=== PATIENT | female | born 1935 | race Caucasian/White ===

== ENCOUNTER → 2016-09-21 | Outpatient (CLI) | payer OTHER ==
--- NOTE | 2016-09-22 10:58 | MR ---
MRI Pelvis Without Contrast History: Right hip pain. Difficulty walking. Evaluate for cartilage damage and AVN. ICD-10 code M13.8 51. Technique: MRI was performed of the right hip and pelvis using a 1.5 [place] MRI system. Large field-of -view coronal and axial imaging was obtained of the pelvis. Small [id number] oblique coronal, obli que axial, and sagittal imaging was obtained of the right hip. Standard imaging sequences were perfor med. Findings: There is evidence of prior lumbar spine surgery with metal susceptibility artifact from the patient's hardware. No evidence for sacroiliitis. No evidence for avascular necrosis of the femoral head or stress fracture of the femoral neck. No evidence for joint effusion. Femoral head-neck junction of the right hip is within normal limits without evidence for an osseous b ump. The anterior superior labrum is diminutive and frayed. No evidence for displaced labral tear. Mi ld cartilage signal abnormality and thinning are seen superiorly in the femoral head and acetabulum. Capsule is unremarkable. There is mild edema and attenuation of the gluteus medius tendon insertion of the right greater troch anter at the anterior fibers. Mild edema is seen in the gluteus minimus tendon insertion. There is ab normal signal intensity in the common hamstring tendon origin bilaterally with mild attenuation on th e left. Impression: 1. Mild early degenerative change right hip with diminutive frayed anterior superior labrum. No evide nce for avascular necrosis. 2. Mild tendinopathy and partial tear gluteus medius tendon insertion of the right greater trochanter . 3. Mild tendinopathy common hamstring tendon origin bilaterally with mild partial tear on the left. 4. Evidence of prior lumbar spine surgery.
== END ==
LOC: FIMAGING 13:44
PROVIDERS: ATTEND Physician Assistant
DX: M13.851 Other specified arthritis, right hip (principal); M25.551 Pain in right hip; M77.9 Enthesopathy, unspecified

== ENCOUNTER → 2016-11-10 | Outpatient (CLI) | payer OTHER | LOC: BHFA 09:00 | PROVIDERS: ATTEND Internal Medicine Cardiovascular Disease | DX: I25.10 Atherosclerotic heart disease of native coronary artery without angina pectoris (principal) | CPT/HCPCS: 78452; 93017; A9500; J2785 ==

== ENCOUNTER → 2016-11-17 | Outpatient (CLI) | payer OTHER | LOC: FIMAGING 11:37 | PROVIDERS: ATTEND Internal Medicine Hematology & Oncology | DX: Z12.31 Encounter for screening mammogram for malignant neoplasm of breast (principal); Z85.3 Personal history of malignant neoplasm of breast; Z90.11 Acquired absence of right breast and nipple | CPT/HCPCS: G0202-52 ==

== ENCOUNTER → 2017-01-07 | Outpatient (CLI) | payer OTHER | LOC: BHFA 15:00 | PROVIDERS: ATTEND Internal Medicine Cardiovascular Disease | DX: I47.2 Ventricular tachycardia (principal) ==

== ENCOUNTER 2017-06-17 12:56 | Emergency (ER) | payer OTHER ==
--- NOTE | 2017-06-17 14:30 | CPEKG ---
Heart Rate: 56 RR Interval: 1071 P-R Interval: 176 QRSD Interval: 120 QT Interval: 440 QTC Interval: 425 P [place]: 45 QRS [place]: -51 T Wave [place]: -21 EKG Severity - ABNORMAL ECG - EKG Impression: SINUS RHYTHM EKG Impression: INCOMPLETE RBBB AND LAFB EKG Impression: LEFT VENTRICULAR HYPERTROPHY Preliminary Awaiting MD Review
[2017-06-17] MEDS ORDERED: ASPIRIN 81 MG CHEWABLE TAB PO ONE (14:57)
[2017-06-17 15:02] LABS: % IMMATURE GRANULYOCYTES 0.2 % (0.0-1.1); ABSOLUTE IMMATURE GRANULOCYTES 0.01 10^3/uL (0.00-0.10); ADD DIFF? NO; ADD MORPH? NO; ADD SCAN? NO; ATYPICAL LYMPHOCYTE FLAG 10 (0-99); FRAGMENT RBC FLAG 0 (0-99); HEMATOCRIT 37.6 % (38.0-47.0); HEMOGLOBIN 13.5 g/dL (12.6-16.3); LEFT SHIFT FLG 0 (0-99); LIPEMIA HEMOLYSIS FLAG 90 (0-99); MEAN CELL HEMOGLOBIN 33.5 pg (27.9-34.1); MEAN CELL HEMOGLOBIN CONCENTR. 35.9 g/dL (32.4-36.7); MEAN CELL VOLUME 93.3 fL (81.5-99.8); PLATELET CLUMPS FLAG 10 (0-99); PLATELET COUNT 211 10^3/uL (150-400); RED BLOOD CELL COUNT 4.03 10^6/uL (4.18-5.33); RED CELL DISTRIBUTION WIDTH 12.8 % (11.5-15.2)
--- NOTE | 2017-06-17 15:04 | EDPHY ---
H & P Time Seen by Provider: 06/17/17 14:59 HPI/ROS: HPI: This 81-year-old female who presents with Chief Complaint: Left neck, left arm pain Location: Left neck, left arm Quality: Burning pain Duration: Since waking this morning around 0600 Signs and Symptoms: No bleeding, + radiation from left lateral neck down to all 5 fingers, no numbness, no weakness, no tingling, no headache, no decreased range of motion, no dizziness, no chest pain, no shortness of breath, no nausea , vomiting Timing: Sudden Severity: Moderate Context: Patient reports that she had a restless evening and had difficulty getting comfortable. She will with left lateral neck pain with radiation to all 5 fingers. Pain is constant, sharp, burning in nature. She also reports lower back pain last night. She has a history of back surgery in the past but has not had this amount of pain since. She has a history of a heart murmur; but denies any significant cardiac history. No trauma/injury/chest pain/ shortness of breath/diaphoresis/nausea. Modifying Factors: Tylenol with no relief Comment: ROS: see HPI Constitutional: No fever, no chills, no weight loss Eyes: No blurred vision Respiratory: No shortness of breath, no cough Cardiovascular: No chest pain Gastrointestinal: No nausea, no vomiting no diarrhea Genitourinary: No dysuria Extremities: No myalgias Neurologic: No weakness, no numbness Skin: No rashes Hematologic: No bruising, no bleeding MEDICAL/SURGICAL/SOCIAL HISTORY: Medical history: hypothyroid, psoriasis, mitral murmur Surgical history: Mastectomy R; hysterectomy; cholecystectomy; back surg; shoulder surg Social history: CONSTITUTIONAL: Pleasant elderly well-appearing white female, at bedside, awake and alert, no obvious distress HEENT: Atraumatic and normocephalic, PERRL, EOMI. Tympanic membranes clear. Oropharynx clear, no exudate and moist pink mucosa. Airway patent. No lymphadenopathy. No meningismus. NECK: supple, no midline tenderness, left reproducible trapezius tenderness, flexion 45 degrees, extension 45 degrees, right and left lateral flexion 45 degrees. No meningismus. Cardiovascular: Normal S1/S2, regular rate, regular rhythm, without murmur rub or gallop. PULMONARY/CHEST: Symmetrical and nontender. Clear to auscultation bilaterally. Good air movement. No accessory muscle usage. ABDOMEN: Soft, nondistended, nontender, no rebound, no guarding, no peritoneal signs, no masses or organomegaly. No CVAT. EXTREMITIES: 2/2 pulses, left shoulder AC joint mild degenerative; no deformities, no clubbing, no cyanosis or edema. NEUROLOGICAL: no focal neuro deficits. GCS 15. SKIN: Warm and dry, no erythema. no rash. Good capillary refill. Source: Patient Exam Limitations: No limitations - Personal History Current Tetanus Diphtheria and Acellular Pertussis (TDAP): Yes - Medical/Surgical History Hx Asthma: No Hx Chronic Respiratory Disease: No Hx Diabetes: Yes Hx Cardiac Disease: Yes Hx Renal Disease: No Hx Cirrhosis: No Hx Alcoholism: No Hx HIV/AIDS: No Hx Splenectomy or Spleen Trauma: No Other PMH: Mastectomy R; hysterectomy; cholecystectomy; back surg; shoulder surg. hypothyroid, psoriasis, mitral murmur - Social History Smoking Status: Never smoked Constitutional: Initial Vital Signs Heart Rate 60 06/17/17 13:09 Respiratory Rate 18 06/17/17 13:09 Blood Pressure 159/80 H 06/17/17 13:09 O2 Sat (%) 95 06/17/17 13:09 O2 Delivery Mode Room Air Allergies/Adverse Reactions: No Known Allergies Allergy (Verified 06/17/17 13:07) Home Medications: Medication Instructions Recorded Folic Acid [Folic Acid 1 MG (*)] 1 mg PO DAILY@18 03/12/10 Insulin Aspart [novoLOG] 8 unit SQ DAILY@17 03/12/10 Insulin Glargine [Lantus 100 26 units SC DAILY 03/12/10 UNITS/ML (*)] Metoprolol Tartrate [Lopressor 25 12.5 mg PO BID 03/12/10 mg (*)] [place]-3 Ethyl Est-Lovaza [Lovaza 1 2 gm PO BID 03/12/10 gm (*)] Aspirin 325 mg (OTC) 325 mg PO DAILY 12/07/13 Cholecalciferol Vit D3 [Vitamin D3 2,000 units PO DAILY 12/07/13 (*)] Fluticasone Nasal [Flonase Nasal 2 sprays EACHNARE DAILY 12/07/13 [place]] Herbals/Supplements -Info Only 1 each PO AD 12/07/13 Levothyroxine [Synthroid 75 mcg 75 mcg PO DAILY06 12/07/13 (*)] Losartan Potassium [Cozaar 50 mg 50 mg PO DAILY@18 12/07/13 (*)] Vit B Comp/C/FA/Iron/Vit E 1 each PO DAILY 12/07/13 [Vitamin B Complex Tablet] metFORMIN HCL [Glucophage 850 mg 850 mg PO BIDMEAL #0 tab 12/08/13 (*)] CYCLOBENZAPRINE HCL [Flexeril] 5 mg PO TIDPRN PRN #12 tab 06/17/17 Verapamil [Calan 40MG (*)] 40 mg PO 06/17/17 Medical Decision Making - Diagnostics Imaging Results: Imaging Impressions Cervical Spine X-Ray 06/17/17 14:58 Impression: 1. Straightening of the mid cervical spine. This is nonspecific but can be seen with muscle spasm. 2. Degenerative disk disease mid to lower cervical spine along with facet hypertrophy. Chest X-Ray 06/17/17 14:58 Impression: 1. No active cardiopulmonary disease seen. Lumbar Spine X-Ray 06/17/17 14:58 Impression: 1. Postoperative changes of lumbar spinal fusion are noted with intact hardware. 2. Prominent degenerative changes above the operative level at the L2-L3 level. Shoulder X-Ray 06/17/17 14:58 Impression: Negative for fracture. Procedures: 12 lead EKG: Indication: Arm pain Rhythm: Normal sinus rhythm, rate 56 beats per minute [place]: Left Intervals: Normal QRS: Normal ST segments: Nonspecific changes T waves: The nonspecific changes INTERPRETATION: Normal EKG The 12 lead EKG was interpreted by myself. ED Course/Re-evaluation: Cervical x-ray, left shoulder x-ray, lumbar spine x-ray and oral medications ordered. Fingerstick blood sugar upon arrival was 90 Given aspirin and Flexeril with moderate relief of pain 1530: D-dimer elevated; CTA chest ordered to rule out pulmonary embolism 1600: Troponin and proBNP are unremarkable an EKG shows no acute ischemic changes Left shoulder x-ray reviewed in no acute fracture, dislocation, degenerative changes Chest x-ray reviewed shows no pneumothorax/effusion/opacity; thoracic spine degenerative changes noted Lumbar sacral spine shows prior history of fusion; mild degenerative changes L1- L2 Cervical x-ray shows straightening of the lordosis consistent with spasm; moderate degenerative disc disease L3-L7 1720: Called by radiologist Dr. Hull who advised no pulmonary embolism. Patient has politely declined any Rx medications stronger than a half a tab of Flexeril at this time. Differential Diagnosis: Differential diagnosis includes but is not limited to cervical degenerative disc disease with radiculopathy, trapezius muscle spasm, left shoulder bursitis , left shoulder impingement syndrome, acute coronary syndrome, pulmonary embolism. - Data Points Laboratory Results: Laboratory Results 06/17/17 14:32 06/17/17 14:32 06/17/17 06/17/17 06/17/17 14:34 14:32 14:32 WBC RBC Hgb Hct MCV MCH MCHC RDW Plt Count MPV Neut % (Auto) Lymph % (Auto) [place] % (Auto) Eos % (Auto) Baso % (Auto) Nucleat RBC Rel Count Absolute Neuts (auto) Absolute Lymphs (auto) Absolute Monos (auto) Absolute Eos (auto) Absolute Basos (auto) Absolute Nucleated RBC Immature Gran % Immature Gran # D-Dimer 0.79 ug/mLFEU H ug/mLFEU (0.00-0.50) Sodium 140 mEq/L mEq/L (134-144) Potassium 4.1 mEq/L mEq/L (3.5-5.2) Chloride 102 mEq/L mEq/L (97-110) Carbon Dioxide 27 mEq/l mEq/l (22-31) Anion Gap 11 mEq/L mEq/L (8-16) BUN 17 mg/dL mg/dL (7-23) Creatinine 0.6 mg/dL mg/dL (0.6-1.0) Estimated GFR > 60 Glucose 102 mg/dL H mg/dL (70-100) POC Glucose 90 mg/dL mg/dL (70-100) Calcium 10.3 mg/dL mg/dL (8.5-10.4) Troponin I < 0.012 ng/mL ng/mL (0.000-0.034) NT-Pro-B Natriuret Pep 260 pg/mL pg/mL (0-450) 06/17/17 14:32 WBC 6.60 10^3/uL 10^3/uL (3.80-9.50) RBC 4.03 10^6/uL L 10^6/uL (4.18-5.33) Hgb 13.5 g/dL g/dL (12.6-16.3) Hct 37.6 % L % (38.0-47.0) MCV 93.3 fL fL (81.5-99.8) MCH 33.5 pg pg (27.9-34.1) MCHC 35.9 g/dL g/dL (32.4-36.7) RDW 12.8 % % (11.5-15.2) Plt Count 211 10^3/uL 10^3/uL (150-400) MPV 9.0 fL fL (8.7-11.7) Neut % (Auto) 64.5 % % (39.3-74.2) Lymph % (Auto) 24.4 % % (15.0-45.0) [place] % (Auto) 8.2 % % (4.5-13.0) Eos % (Auto) 2.1 % % (0.6-7.6) Baso % (Auto) 0.6 % % (0.3-1.7) Nucleat RBC Rel Count 0.0 % % (0.0-0.2) Absolute Neuts (auto) 4.26 10^3/uL 10^3/uL (1.70-6.50) Absolute Lymphs (auto) 1.61 10^3/uL 10^3/uL (1.00-3.00) Absolute Monos (auto) 0.54 10^3/uL 10^3/uL (0.30-0.80) Absolute Eos (auto) 0.14 10^3/uL 10^3/uL (0.03-0.40) Absolute Basos (auto) 0.04 10^3/uL 10^3/uL (0.02-0.10) Absolute Nucleated RBC 0.00 10^3/uL 10^3/uL (0-0.01) Immature Gran % 0.2 % % (0.0-1.1) Immature Gran # 0.01 10^3/uL 10^3/uL (0.00-0.10) D-Dimer Sodium Potassium Chloride Carbon Dioxide Anion Gap BUN Creatinine Estimated GFR Glucose POC Glucose Calcium Troponin I NT-Pro-B Natriuret Pep Medications Given: Discontinued Medications Aspirin (Aspirin) 324 mg PO EDNOW ONE Stop: 06/17/17 14:58 Last Admin: 06/17/17 15:36 Dose: 324 mg Cyclobenzaprine HCl (Flexeril) 5 mg PO EDNOW ONE Stop: 06/17/17 15:06 Last Admin: 06/17/17 15:36 Dose: 5 mg Point of Care Test Results: 06/17/17 14:34 POC Glucose 90 Departure - Departure Disposition: Home, Routine, Self-Care Clinical Impression: Cervical radiculopathy due to degenerative joint disease of spine, Lumbar degenerative disc disease, History of lumbar spinal fusion, Cervical paraspinal muscle spasm Condition: Good Instructions: Cervical Strain (ED), Degenerative Disc Disease (ED) Additional Instructions: If symptoms continue to persist or worsen, please follow-up with Neurosurgery at which time they will recommend conservative versus further diagnostic imaging like an MRI to further evaluate the etiology of your symptoms. Referrals: Robyn Haines MD [Primary Care Provider] - As per Instructions Yuniel Theodore MD [Medical Doctor] - As per Instructions Prescriptions: CYCLOBENZAPRINE HCL [Flexeril] 5 mg PO TIDPRN PRN #12 tab PRN Reason: Spasms
[2017-06-17] MEDS ORDERED: CYCLOBENZAPRINE 10 MG TAB PO ONE (15:05)
[2017-06-17 15:19] LABS: ANION GAP 11 mEq/L (8-16); CALCIUM 10.3 mg/dL (8.5-10.4); CARBON DIOXIDE 27 mEq/l (22-31); CHLORIDE 102 mEq/L (97-110); CREATININE 0.6 mg/dL (0.6-1.0); GLOMERULAR FILTRATION RATE > 60; GLUCOSE 102 mg/dL (70-100); POTASSIUM 4.1 mEq/L (3.5-5.2); SODIUM 140 mEq/L (134-144)
[2017-06-17 15:31] LABS: TROPONIN I < 0.012 ng/mL (0.000-0.034)
[2017-06-17] MEDS ORDERED: IOPAMIDOL (ISOVUE 370) 100 ML BTL IV ONE (15:57)
[2017-06-17 17:40] VITALS: BP 164/97; PULSE 71; RESP 16; TEMP 97.7; O2SAT 92
== END 2017-06-17 17:50 | disposition home or self-care (01) ==
DX: M47.22 Other spondylosis with radiculopathy, cervical region (principal); M47.26 Other spondylosis with radiculopathy, lumbar region; M62.838 Other muscle spasm; E11.9 Type 2 diabetes mellitus without complications; Z79.4 Long term (current) use of insulin; Z79.82 Long term (current) use of aspirin; Z79.84 Long term (current) use of oral hypoglycemic drugs; Z98.1 Arthrodesis status
CPT/HCPCS: 71020; 71275; 72040; 72100; 73030; 93005; 99285; Q9967

== ENCOUNTER 2017-11-05 17:25 | Emergency (ER) | payer OTHER ==
--- NOTE | 2017-11-05 17:29 | EDPHY ---
H & P Time Seen by Provider: 11/05/17 17:33 HPI/ROS: CHIEF COMPLAINT: Blood in urine HISTORY OF PRESENT ILLNESS: Patient had diarrhea earlier today which was severe but not bloody. At the time of was associated with pain in her left flank which radiated to the left side of her vagina. The diarrhea has since subsided but then she noticed her urine was a little bit bloody, presents to the ER for evaluation. No fever or chills and no dysuria. No urinary frequency. No current back pain. Symptoms mild and not associated with any recent trauma or injury. No other sites of bleeding. REVIEW OF SYSTEMS: Eye: no change in vision ENT: no sore throat Cardiac: no chest pain or syncope Pulmonary: no cough or SOB Abdomen: HPI no vomiting Musculoskeletal: HPI Skin: no rash Neuro: no headache Constitutional: no fever : HPI A comprehensive 10 point review of systems is otherwise negative aside from elements mentioned in the history of present illness. PAST MEDICAL HISTORY: History and physical by Dr. Sanchez dated 12/07/2013 personally reviewed includes diabetes, hypertension, hyperlipidemia, atrial fibrillation, arthritis. Hysterectomy, cholecystectomy. Psoriasis. Social history: Nonsmoker General Appearance: Alert and conversant, cooperative. Eyes: No scleral icterus. ENT, Mouth: Normal mucous membranes. Respiratory: Normal respiratory effort, breath sounds equal, lungs are clear to auscultation. Cardiovascular: Regular rate and rhythm. Gastrointestinal: Abdomen is soft and non tender. Neurological: Alert, face symmetric, normal motor and sensory in extremities. Ambulatory, not ataxic. Independently to the bathroom. Skin: Patient has multiple areas of psoriasis including both elbows and both flanks. Musculoskeletal: No peripheral edema. Psychiatric: Not agitated. Emergency Department course/MDM: Urine dip positive for blood, urine microscopic and noncontrast CT abdomen and pelvis discussed and consented to evaluate for renal colic. 1825: Urinalysis reviewed will send culture but would not treat for UTI. Much more likely to be from renal colic. Referred back to primary care physician. Database and studies reviewed with the patient. Likely passed a kidney stone on the left. The hematuria more likely from this than UTI. Smoking Status: Never smoked Constitutional: Initial Vital Signs Temperature (C) 36.8 C 11/05/17 17:29 Heart Rate 82 11/05/17 17:29 Respiratory Rate 18 11/05/17 17:29 Blood Pressure 126/68 H 11/05/17 17:29 O2 Sat (%) 94 11/05/17 17:29 O2 Delivery Mode Room Air Allergies/Adverse Reactions: No Known Allergies Allergy (Verified 11/05/17 17:29) Home Medications: Medication Instructions Recorded Folic Acid [Folic Acid 1 MG (*)] 1 mg PO DAILY@18 03/12/10 Insulin Aspart [novoLOG] 8 unit SQ DAILY@17 03/12/10 Insulin Glargine [Lantus 100 26 units SC DAILY 03/12/10 UNITS/ML (*)] Metoprolol Tartrate [Lopressor 25 12.5 mg PO BID 03/12/10 mg (*)] [place]-3 Ethyl Est-Lovaza [Lovaza 1 2 gm PO BID 03/12/10 gm (*)] Aspirin 325 mg (OTC) 325 mg PO DAILY 12/07/13 Cholecalciferol Vit D3 [Vitamin D3 2,000 units PO DAILY 12/07/13 (*)] Fluticasone Nasal [Flonase Nasal 2 sprays EACHNARE DAILY 12/07/13 [place]] Herbals/Supplements -Info Only 1 each PO AD 12/07/13 Levothyroxine [Synthroid 75 mcg 75 mcg PO DAILY06 12/07/13 (*)] Losartan Potassium [Cozaar 50 mg 50 mg PO DAILY@18 12/07/13 (*)] Vit B Comp/C/FA/Iron/Vit E 1 each PO DAILY 12/07/13 [Vitamin B Complex Tablet] metFORMIN HCL [Glucophage 850 mg 850 mg PO BIDMEAL #0 tab 12/08/13 (*)] CYCLOBENZAPRINE HCL [Flexeril] 5 mg PO TIDPRN PRN #12 tab 06/17/17 Verapamil [Calan 40MG (*)] 40 mg PO 06/17/17 Medical Decision Making - Diagnostics Imaging Results: Imaging Impressions Abdomen/Pelvis CT 11/05/17 17:48 Impression: 1. Recently passed 3 mm calculus resides in the lumen of the urinary bladder. Mild residual left pelvocaliectasis and left perinephric edema. 2. Right nephrolithiasis. No ureteral calculi. Attention: This CT examination is specifically designed to evaluate patients who are clinically suspected of having acute obstructive uropathy. This examination does not use radiographic contrast, and as such, provides only a limited evaluation of the abdomen, pelvis and retroperitoneum. If there is further clinical suspicion for pathological conditions other than obstructive uropathy, a complete CT evaluation of the abdomen and pelvis utilizing intravenous, oral, and rectal contrast should be considered. Findings discussed with Emergency Department physician, Nacho Brower on 11/05/2017 , 18:20. The CT per Dr. Holt shows probable recently passed left ureteral calculus with some stranding and hydronephrosis in the left kidney and a 3 mm stone in the bladder. Imaging: Discussed imaging studies w/ body recall instructor Radiologist, I viewed and interpreted images myself Differential Diagnosis: Differential for hematuria considered including but not limited to kidney trauma , renal colic, UTI, coagulopathy. - Data Points Laboratory Results: 11/05/17 17:45 Urine RBC 50-182 /hpf H /hpf (0-3) Urine WBC 5-10 /hpf H /hpf (0-3) Ur Epithelial Cells TRACE /lpf /lpf (NONE-1+) Urine Bacteria TRACE /hpf H /hpf (NONE SEEN) Urine Mucus TRACE /lpf /lpf (NONE-1+) Departure - Departure Disposition: Home, Routine, Self-Care Clinical Impression: Renal colic on left side Condition: Good Instructions: Renal Colic (ED) Additional Instructions: Call [phone] in 48 hr for urine culture results. Referrals: Robyn Haines MD [Primary Care Provider] - As per Instructions
[2017-11-05 17:32] VITALS: BP 126/68; PULSE 82; RESP 18; TEMP 98.2; O2SAT 94
== END 2017-11-05 18:20 | disposition home or self-care (01) ==
DX: N23 Unspecified renal colic (principal); E11.9 Type 2 diabetes mellitus without complications; I10 Essential (primary) hypertension; Z79.4 Long term (current) use of insulin; Z79.82 Long term (current) use of aspirin

== ENCOUNTER → 2017-11-23 | Outpatient (CLI) | payer OTHER | LOC: FIMAGING 12:53 | PROVIDERS: ATTEND Internal Medicine Hematology & Oncology | DX: Z12.31 Encounter for screening mammogram for malignant neoplasm of breast (principal); Z90.11 Acquired absence of right breast and nipple ==

== ENCOUNTER → 2018-07-07 | Outpatient (CLI) | payer OTHER | LOC: BHFA 10:45 | PROVIDERS: ATTEND Internal Medicine Cardiovascular Disease | DX: I25.10 Atherosclerotic heart disease of native coronary artery without angina pectoris (principal); I10 Essential (primary) hypertension ==

== ENCOUNTER → 2018-07-19 | Outpatient (CLI) | payer OTHER | LOC: BHFA 09:00 | PROVIDERS: ATTEND Internal Medicine Interventional Cardiology | DX: I25.10 Atherosclerotic heart disease of native coronary artery without angina pectoris (principal); I42.2 Other hypertrophic cardiomyopathy; I35.0 Nonrheumatic aortic (valve) stenosis; I48.91 Unspecified atrial fibrillation ==

== ENCOUNTER 2018-09-13 19:54 | Observation (INO) | payer OTHER ==
[2018-09-13 20:46] LABS: PLATELET COUNT 204 10^3/uL (150-400)
--- NOTE | 2018-09-13 20:59 | EDPHY ---
H & P Stated Complaint: Afib started around 1800 Time Seen by Provider: 09/13/18 20:07 HPI/ROS: CHIEF COMPLAINT: Chest pain, palpitations HISTORY OF PRESENT ILLNESS: The patient presents to the ED with chest pain and palpitations that began at 7:00 a.m. this evening. The patient reportedly has a history of atrial fibrillation. She is under the care of Cardiology. She is not aware of a prior history of coronary artery disease. Tonight she reported pain that radiated to her neck and back. She currently is asymptomatic. The patient denies any asymmetric calf pain or swelling. The patient denies any history of exertional chest pain or shortness of breath. The patient denies any abdominal pain, vomiting or diarrhea. Patient denies any pleuritic chest pain. She denies asymmetric calf pain or swelling. The patient denies any history of exertional chest pain or shortness of breath. REVIEW OF SYSTEMS: A comprehensive 10 point review of systems is otherwise negative aside from elements mentioned in the history of present illness. Source: Patient Exam Limitations: No limitations - Personal History Current Tetanus/Diphtheria Vaccine: Yes Current Tetanus Diphtheria and Acellular Pertussis (TDAP): Yes - Medical/Surgical History Hx Asthma: No Hx Chronic Respiratory Disease: No Hx Diabetes: Yes Hx Cardiac Disease: Yes Hx Renal Disease: No Hx Cirrhosis: No Hx Alcoholism: No Hx HIV/AIDS: No Hx Splenectomy or Spleen Trauma: No Other PMH: Mastectomy R; hysterectomy; cholecystectomy; back surg; shoulder surg. hypothyroid, psoriasis, mitral murmur. ventriculat tachycardia, Afib - Social History Smoking Status: Never smoked - Physical Exam Exam: General Appearance: Alert, no distress Eyes: Pupils equal and round no pallor or injection ENT, Mouth: Mucous membranes moist Respiratory: There are no retractions, lungs are clear to auscultation Cardiovascular: 3/6 systolic ejection murmur Gastrointestinal: Abdomen is soft and nontender, no masses, bowel sounds normal Neurological: A&O, normal motor function, normal sensory exam, normal cranial nerves Skin: Warm and dry, no rashes Musculoskeletal: Neck is supple nontender Extremities: symmetrical, full range of motion Constitutional: Initial Vital Signs Temperature (C) 36.7 C 09/13/18 19:56 Heart Rate 99 09/13/18 19:56 Respiratory Rate 16 09/13/18 19:56 Blood Pressure 145/92 H 09/13/18 19:56 O2 Sat (%) 91 L 09/13/18 19:56 O2 Delivery Mode Room Air Allergies/Adverse Reactions: No Known Allergies Allergy (Verified 09/13/18 19:58) Home Medications: Medication Instructions Recorded Folic Acid [Folic Acid 1 MG (*)] 1 mg PO DAILY@18 03/12/10 Metoprolol Tartrate [Lopressor 25 12.5 mg PO BID 03/12/10 mg (*)] [place]-3 Ethyl Est-Lovaza [Lovaza 1 2 gm PO BID 03/12/10 gm (*)] Cholecalciferol Vit D3 [Vitamin D3 2,000 units PO DAILY 12/07/13 (*)] Fluticasone Nasal [Flonase Nasal 2 sprays EACHNARE DAILY 12/07/13 [place]] Herbals/Supplements -Info Only 1 each PO AD 12/07/13 Levothyroxine [Synthroid 75 mcg 75 mcg PO DAILY06 12/07/13 (*)] Losartan Potassium [Cozaar 50 mg 25 mg PO BID 12/07/13 (*)] Vit B Comp/C/Folic/Iron/Vit E 1 each PO DAILY 12/07/13 [Vitamin B Complex Tablet] metFORMIN HCL [Glucophage 850 mg 850 mg PO BIDMEAL #0 tab 12/08/13 (*)] Insulin Glargine,Hum.rec.anlog 30 units SC DAILY 09/13/18 [Basaglar Kwikpen U-100] Insulin Lispro [Humalog] 8 unit SQ DAILY@1700 09/13/18 Mirabegron [Myrbetriq] 50 mg PO DAILY 09/13/18 Verapamil ER [Calan SR/ER 120MG 120 mg PO DAILY@1700 09/13/18 (*)] Medical Decision Making - Diagnostics EKG Interpretation: EKG: Complete interpretation has been separately recorded in the [employer] archive. Summary impression: Sinus rhythm, bifascicular block, LVH, no ST segment elevation or depression noted ED Course/Re-evaluation: The patient presents the emergency department with chest pain, neck discomfort and palpitations that began earlier today. The patient did describe her symptoms with a Cooney sign. The patient has no history of coronary artery disease. The patient does have a bifascicular block noted on her EKG. The patient's initial troponin is normal. The patient does have risk factors for coronary artery disease including age, diabetes and hypertension. Patient does have a history of atrial fibrillation. Patient has a HEART score of 5. I do feel the patient should be admitted for a formal rule out consideration of a formal stress test tomorrow. The patient remained asymptomatic throughout her stay in the emergency department. Consultation was made with the hospitalist service. The patient will be admitted by Dr. Tip Lema. Differential Diagnosis: Differential diagnosis considered includes acute coronary syndrome, pericarditis , myocardial infarction, zoster, pulmonary embolism - Data Points Laboratory Results: Laboratory Results 09/13/18 20:30 09/13/18 20:30 09/13/18 09/13/18 09/13/18 20:57 20:30 20:30 WBC 6.14 10^3/uL 10^3/uL (3.80-9.50) RBC 3.80 10^6/uL L 10^6/uL (4.18-5.33) Hgb 12.5 g/dL L g/dL (12.6-16.3) Hct 35.7 % L % (38.0-47.0) MCV 93.9 fL fL (81.5-99.8) MCH 32.9 pg pg (27.9-34.1) MCHC 35.0 g/dL g/dL (32.4-36.7) RDW 12.8 % % (11.5-15.2) Plt Count 204 10^3/uL 10^3/uL (150-400) MPV 8.8 fL fL (8.7-11.7) Neut % (Auto) 63.3 % % (39.3-74.2) Lymph % (Auto) 25.1 % % (15.0-45.0) [place] % (Auto) 8.0 % % (4.5-13.0) Eos % (Auto) 2.6 % % (0.6-7.6) Baso % (Auto) 0.7 % % (0.3-1.7) Nucleat RBC Rel Count 0.0 % % (0.0-0.2) Absolute Neuts (auto) 3.89 10^3/uL 10^3/uL (1.70-6.50) Absolute Lymphs (auto) 1.54 10^3/uL 10^3/uL (1.00-3.00) Absolute Monos (auto) 0.49 10^3/uL 10^3/uL (0.30-0.80) Absolute Eos (auto) 0.16 10^3/uL 10^3/uL (0.03-0.40) Absolute Basos (auto) 0.04 10^3/uL 10^3/uL (0.02-0.10) Absolute Nucleated RBC 0.00 10^3/uL 10^3/uL (0-0.01) Immature Gran % 0.3 % % (0.0-1.1) Immature Gran # 0.02 10^3/uL 10^3/uL (0.00-0.10) Sodium 141 mEq/L mEq/L (135-145) Potassium 4.0 mEq/L mEq/L (3.5-5.2) Chloride 108 mEq/L mEq/L (97-110) Carbon Dioxide 26 mEq/l mEq/l (22-31) Anion Gap 7 mEq/L mEq/L (6-14) BUN 17 mg/dL mg/dL (7-23) Creatinine 0.6 mg/dL mg/dL (0.6-1.0) Estimated GFR > 60 Glucose 183 mg/dL H mg/dL (70-100) Calcium 9.6 mg/dL mg/dL (8.5-10.4) POC Troponin I 0.02 ng/mL ng/mL (0.00-0.08) Point of Care Test Results: Chemistry 09/13/18 20:57 POC Troponin I 0.02 ng/mL ng/mL (0.00-0.08) Departure - Departure Disposition: [facility] Inpatient Acute Clinical Impression: Chest pain Condition: Good
[2018-09-13] MEDS ORDERED: ACETAMINOPHEN 325 MG TAB PO PRN (22:39)
[2018-09-13] MEDS ORDERED: ONDANSETRON 4 MG/2 ML VIAL IVP PRN (22:39)
[2018-09-13] MEDS ORDERED: ONDANSETRON DISINTEGRATING 4 MG TAB PO PRN (22:39)
--- NOTE | 2018-09-13 22:41 | CPEKG ---
Test Reason : OPEN Blood Pressure : / mmHG Vent. Rate : 093 BPM Atrial Rate : 093 BPM P-R Int : 186 ms QRS Dur : 125 ms QT Int : 395 ms P-R-T Axes : 067 -61 019 degrees QTc Int : 492 ms Sinus rhythm RBBB and LAFB Left ventricular hypertrophy Lateral infarct, age indeterminate Confirmed by Manjeet Mills ([id number]) on 09/13/2018 10:40:42 PM Referred By: Confirmed By:Manjeet Mills
[2018-09-13] MEDS ORDERED: NITROGLYCERIN 0.4 MG BTL SL PRN (22:42)
[2018-09-13] MEDS ORDERED: D50W 25 GM/50 ML VIAL IVP PRN (23:31)
--- NOTE | 2018-09-14 00:52 | PDGENHP ---
History and Physical - Chief Complaint Chest pain - History of Present Illness 83 yo F w/ hx of AF, moderate , DM, and HTN presents after episode of chest pain. The patient was watching TV when she noticed central chest pressure and palpitations. The discomfort radiated to her neck and L shoulder/arm. The episode lasted about 45 minutes. She is chest pain free at the moment without other complaints. In the ED her work-up was relatively unremarkable with non- ischemic ECG and negative troponin. She is in sinus rhythm. She is being admitted for further evaluation of chest pain. Case discussed with Dr. Lema; records reviewed and summarized above. History Information - Allergies/Home Medication List Allergies/Adverse Reactions: No Known Allergies Allergy (Verified 09/13/18 19:58) Home Medications: Folic Acid [Folic Acid 1 MG (*)] 1 mg PO DAILY@18 03/12/10 [Last Taken 12/06/13 18:00] Metoprolol Tartrate [Lopressor 25 mg (*)] 12.5 mg PO BID 03/12/10 [Last Taken 10:00] [place]-3 Ethyl Est-Lovaza [Lovaza 1 gm (*)] 2 gm PO BID 03/12/10 [Last Taken 10/21 10:00] Cholecalciferol Vit D3 [Vitamin D3 (*)] 2,000 units PO DAILY 12/07/13 [Last Taken 12/06/13 18:00] Fluticasone Nasal [Flonase Nasal [place]] 2 sprays EACHNARE DAILY 12/07/13 [Last Taken 12/07/13 08:00] Herbals/Supplements -Info Only 1 each PO AD 12/07/13 [Last Taken 12/06/13 18:00] Levothyroxine [Synthroid 75 mcg (*)] 75 mcg PO DAILY06 12/07/13 [Last Taken 10/21 07:00] Losartan Potassium [Cozaar 50 mg (*)] 25 mg PO BID 12/07/13 [Last Taken 18:00] Vit B Comp/C/Folic/Iron/Vit E [Vitamin B Complex Tablet] 1 each PO DAILY [Last Taken 12/07/13 10:00] Insulin Glargine,Hum.rec.anlog [Basaglar Kwikpen U-100] 30 units SC DAILY [Last Taken 09/13/18] Insulin Lispro [Humalog] 8 unit SQ DAILY@1700 09/13/18 [Last Taken Unknown] Mirabegron [Myrbetriq] 50 mg PO DAILY 09/13/18 [Last Taken Unknown] Verapamil ER [Calan SR/ER 120MG (*)] 120 mg PO DAILY@1700 09/13/18 [Last Taken Unknown] I have personally reviewed and updated: family history, medical history - Past Medical History atrial fibrillation, diabetes type 2, hypertension Additional medical history: Moderate aortic stenosis - Surgical History Reports: cholecystectomy, hysterectomy, hernia repair - Family History Positive for: cancer, diabetes type II, CAD - Social History Smoking Status: Never smoked Review of Systems Review of Systems: ROS: 10pt was reviewed & negative except for what was stated in HPI & below Physical Exam Physical Exam: Temp Pulse Resp BP Pulse Ox 36.8 C 79 16 142/77 H 98 09/13/18 23:02 09/13/18 23:02 09/13/18 23:02 09/13/18 23:02 09/13/18 23:02 O2 (L/minute) 2 Constitutional: no apparent distress, not in pain Eyes: EOMI Ears, Nose, Mouth, Throat: moist mucous membranes, no oral mucosal ulcers Cardiovascular: regular rate and rhythym, systolic murmur Respiratory: no respiratory distress, clear to auscultation Gastrointestinal: normoactive bowel sounds, soft, non-tender abdomen Skin: warm, normal color Musculoskeletal: full muscle strength, no muscle tenderness Neurologic: AAOx3, CN II-XII Intact Psychiatric: interacting appropriately, not anxious Lab Data & Imaging Review 09/13/18 20:30 09/13/18 20:30 WBC 6.14 10^3/uL (3.80-9.50) 09/13/18 20:30 RBC 3.80 10^6/uL (4.18-5.33) L 09/13/18 20:30 Hgb 12.5 g/dL (12.6-16.3) L 09/13/18 20:30 Hct 35.7 % (38.0-47.0) L 09/13/18 20:30 MCV 93.9 fL (81.5-99.8) 09/13/18 20:30 MCH 32.9 pg (27.9-34.1) 09/13/18 20: MCHC 35.0 g/dL (32.4-36.7) 09/13/18 20: RDW 12.8 % (11.5-15.2) 09/13/18 20:30 Plt Count 204 10^3/uL (150-400) 09/13/18 20:30 MPV 8.8 fL (8.7-11.7) 09/13/18 20:30 Neut % (Auto) 63.3 % (39.3-74.2) 09/13/18 20:30 Lymph % (Auto) 25.1 % (15.0-45.0) 09/13/18 20: [place] % (Auto) 8.0 % (4.5-13.0) 09/13/18 20:30 Eos % (Auto) 2.6 % (0.6-7.6) 09/13/18: Baso % (Auto) 0.7 % (0.3-1.7) 09/13/18 20:30 Nucleat RBC Rel Count 0.0 % (0.0-0.2) 09/13/18 20:30 Absolute Neuts (auto) 3.89 10^3/uL (1.70-6.50) 09/13/18 20:30 Absolute Lymphs (auto) 1.54 10^3/uL (1.00-3.00) 09/13/18 20: Absolute Monos (auto) 0.49 10^3/uL (0.30-0.80) 09/13/18 20:30 Absolute Eos (auto) 0.16 10^3/uL (0.03-0.40) 09/13/18 20: Absolute Basos (auto) 0.04 10^3/uL (0.02-0.10) 09/13/18 20: Absolute Nucleated RBC 0.00 10^3/uL (0-0.01) 09/13/18 20: Immature Gran % 0.3 % (0.0-1.1) 09/13/18 20: Immature Gran # 0.02 10^3/uL (0.00-0.10) 09/13/18 20:30 Sodium 141 mEq/L (135-145) 09/13/18 20:30 Potassium 4.0 mEq/L (3.5-5.2) 09/13/18 20:30 Chloride 108 mEq/L (97-110) 09/13/18 20:30 Carbon Dioxide 26 mEq/l (22-31) 09/13/18 20:30 Anion Gap 7 mEq/L (6-14) 09/13/18 20:30 BUN 17 mg/dL (7-23) 09/13/18 20:30 Creatinine 0.6 mg/dL (0.6-1.0) 09/13/18 20:30 Estimated GFR > 60 09/13/18 20:30 Glucose 183 mg/dL (70-100) H 09/13/18 20:30 Calcium 9.6 mg/dL (8.5-10.4) 09/13/18 20:30 POC Troponin I 0.02 ng/mL (0.00-0.08) 09/13/18 20:57 Visualized and Interpreted EKG results: Yes EKG Interpretation: Positive for: normal sinsus rhythm, other (Bifascicular block) Assessment & Plan Assessment: 83 yo F w/ hx moderate , HTN, AF, and DM presents with chest pain. Plan: 1. Chest pain - 45 minute episode of central chest pressure associated with palpitations and radiation the L neck and arm. Initial ECG (personally reviewed/ interpreted) demonstrates stable bifascicular block but no signs of acute ischemia; troponin negative. HEART score of at least 5 denoting need for further work-up. - Admit to PCU for observation - Trend cardiac enzymes, monitor on telemetry - ECG, NTG PRN for chest pain - Noting abnormal baseline ECG, moderate , and recent BB use will order Lexiscan perfusion study w/ NM 2. Moderate - Mean gradient 31 mm Hg on 06/24 TTE. She denies prior symptoms of dyspnea, syncope, or heart failure. - Ischemic evaluation as above 3. AF - In NSR on admission, has bifascicular block at baseline; not on AC. She is followed by Dr. Carpenter. - Monitor on telemetry - Continue BB, CCB 4. HTN - Continue home medications 5. DM - On metformin, insulin glargine 30 u qAM, and lispro 8 u @ 1700. - Will give half dose basal insulin tomorrow noting NPO - Continue other medications - Monitor BG ACHS; D50 IV PRN for hypoglycemia Diet - NPO @ GA Code - Full Ppx - LMWH Dispo - Admit under observation status
[2018-09-14 05:09] LABS: PLATELET COUNT 191 10^3/uL (150-400)
[2018-09-14] MEDS ORDERED: LEVOTHYROXINE 75 MCG TAB PO SCH (06:00)
[2018-09-14] MEDS ORDERED: metFORMIN HCL 850 MG TAB PO SCH (08:00)
[2018-09-14] MEDS ORDERED: CHOLECALCIFEROL VIT D3 2,000 UNITS TAB/CAP PO SCH (09:00)
[2018-09-14] MEDS ORDERED: OMEGA-3 ETHYL EST-LOVAZA 1 GM CAP PO SCH (09:00)
[2018-09-14] MEDS ORDERED: Mirabegron [Myrbetriq] 50 MG PO SCH (09:00)
[2018-09-14] MEDS ORDERED: INSULIN GLARGINE HUM REC ANLOG 15 UNIT SC SCH (09:00)
[2018-09-14] MEDS ORDERED: VITAMIN B COMPLEX 1 EA CAP/TAB PO SCH (09:00)
[2018-09-14] MEDS ORDERED: FLUTICASONE NASAL 120 SPRAYS/16 GM MDI EACHNARE SCH (09:00)
[2018-09-14] MEDS ORDERED: METOPROLOL TARTRATE 25 MG TAB PO SCH (09:00)
[2018-09-14] MEDS ORDERED: ENOXAPARIN 40 MG/0.4 ML SYR SC SCH (09:00)
[2018-09-14] MEDS ORDERED: LOSARTAN POTASSIUM 25 MG TAB PO SCH (09:00)
[2018-09-14] MEDS ORDERED: REGADENOSON 0.4 MG/5 ML SYR IVP ONE (09:26)
--- NOTE | 2018-09-14 09:56 | ASMTCMCOM ---
CM Note CM Note Notes: Pt is an 83 yo F presents with chestpain. Pt lives with her Solo. No therapies ordered. Likely will discharge independent. CM available if needs arise. Plan: Independent Date Signed: 09/14/2018 09:55 AM Electronically Signed By:RASTA Butt
[2018-09-14 12:25] VITALS: BP 125/61
--- NOTE | 2018-09-14 13:36 | HOSPPROG ---
Hospitalist Progress Note Assessment/Plan: 83 yo F w clover w cp seen by her distribution field technician freida licea home today see dc summary she dos take an asa at home Subjective: neg trop. wishes to go home Objective: Vital Signs Temp Pulse Resp BP Pulse Ox 36.5 C 73 16 125/61 H 92 09/14/18 12:00 09/14/18 12:00 09/14/18 12:00 09/14/18 12:00 09/14/18 12:00 Laboratory Results 09/14/18 04:08 09/14/18 04:08 09/13/18 09/14/18 09/15/18 05:59 05:59 05:59 Intake Total 100 520 Output Total 100 900 Balance 0 -380 - Physical Exam Constitutional: no apparent distress Eyes: PERRL, anicteric sclera Ears, Nose, Mouth, Throat: moist mucous membranes, hearing normal Cardiovascular: regular rate and rhythym, No systolic murmur Respiratory: no respiratory distress, no rales or rhonchi Gastrointestinal: normoactive bowel sounds, soft, non-tender abdomen Genitourinary: no bladder fullness, No ricardo in urethra Skin: warm Musculoskeletal: full muscle strength ICD10 Worksheet Patient Problems: Problems Problem Status Onset Chest pain Acute
--- NOTE | 2018-09-14 13:47 | PDCARCONS ---
Cardiology Consult Reason for Consult: Chest pain Chief Complaint: Chest pain Requesting Physician: Nayan History of Present Illness: 83-year-old female well known to me history of aortic stenosis with recent increasing gradient peak of 61 mm of mercury in June who was watching the news yesterday. She developed the acute onset of palpitations. They are painful. There is some discomfort up into her neck and into her arm. She became frightened and anxious. After 45 min she came to the emergency department on arrival her pain resolved. She has been observed overnight. Without further discomfort. Troponins are negative. Her mass to comment on further evaluation. She has been complaining of some shortness of breath with exertion. She occasionally has chest pressure. She has known history of atrial fibrillation associated with palpitations. She has a known history of wide complex tachycardia that has been nonsustained. There was a discussion regarding placement of an ICD which she declined. She had a normal coronary angiogram in 2013. Recent echocardiogram showed progression of aortic stenosis in the moderate to severe range in June. At that time there was a discussion regarding potential surgical intervention. She is not particularly interested in considering this option. She denies PND orthopnea. She has had no syncope. Patient also complained of an upset stomach yesterday. She ate out. She denies diarrhea or constipation. She has otherwise been in relatively good health. Medications Generic Name Dose Route Start Last Admin Trade Name Quentni PRN Reason Stop Dose Admin Enoxaparin Sodium 40 mg 09/14/18 09:00 09/14/18 08:18 Lovenox SC 03/13/19 08:59 40 mg DAILY [facility] Acetaminophen 650 mg 09/13/18 22:39 Tylenol PO 03/12/19 22:38 Q4HRS PRN Pain, Mild/Fever, Can Take PO Cholecalciferol 2,000 units 09/14/18 09:00 09/14/18 08:18 Vitamin D PO 03/13/19 08:59 2,000 units DAILY [facility] Dextrose 25 gm 09/13/18 23:31 Dextrose 50% Vial IVP 03/12/19 23:30 PRN PRN Hypoglycemia Fluticasone Propionate 2 sprays 09/14/18 09:00 09/14/18 08:19 Flonase Nasal [place] EACHNARE 03/13/19 08:59 Not Given DAILY [facility] Folic Acid 1 mg 09/14/18 18:00 Folic Acid PO 03/13/19 17:59 DAILY@18 [facility] Insulin Human Lispro 8 unit 09/14/18 17:00 Humalog Lispro SC 03/13/19 16:59 DAILY@1700 [facility] Levothyroxine Sodium 75 mcg 09/14/18 06:00 09/14/18 08:18 Synthroid PO 03/13/19 05:59 75 mcg DAILY06 [facility] Losartan Potassium 25 mg 09/14/18 09:00 09/14/18 08:18 Cozaar PO 03/13/19 08:59 25 mg BID [facility] Metformin HCl 850 mg 09/14/18 08:00 09/14/18 10:11 Glucophage PO 03/13/19 07:59 850 mg BIDMEAL [facility] Metoprolol Tartrate 12.5 mg 09/14/18 09:00 09/14/18 10:11 Lopressor PO 03/13/19 08:59 12.5 mg BID [facility] Verapamil HCl 120 mg 09/14/18 17:00 Calan Sr PO 03/13/19 16:59 DAILY@1700 [facility] History Information - Allergies/Home Medication List Allergies/Adverse Reactions: No Known Allergies Allergy (Verified 09/13/18 19:58) Home Medications: Folic Acid [Folic Acid 1 MG (*)] 1 mg PO DAILY@18 03/12/10 [Last Taken 12/06/13 18:00] Metoprolol Tartrate [Lopressor 25 mg (*)] 12.5 mg PO BID 03/12/10 [Last Taken 10:00] [place]-3 Ethyl Est-Lovaza [Lovaza 1 gm (*)] 2 gm PO BID 03/12/10 [Last Taken 10/21 10:00] Cholecalciferol Vit D3 [Vitamin D3 (*)] 2,000 units PO DAILY 12/07/13 [Last Taken 12/06/13 18:00] Fluticasone Nasal [Flonase Nasal [place]] 2 sprays EACHNARE DAILY 12/07/13 [Last Taken 12/07/13 08:00] Herbals/Supplements -Info Only 1 each PO AD 12/07/13 [Last Taken 12/06/13 18:00] Levothyroxine [Synthroid 75 mcg (*)] 75 mcg PO DAILY06 12/07/13 [Last Taken 10/21 07:00] Losartan Potassium [Cozaar 50 mg (*)] 25 mg PO BID 12/07/13 [Last Taken 18:00] Vit B Comp/C/Folic/Iron/Vit E [Vitamin B Complex Tablet] 1 each PO DAILY [Last Taken 12/07/13 10:00] Insulin Glargine,Hum.rec.anlog [Basaglar Kwikpen U-100] 30 units SC DAILY [Last Taken 09/13/18] Insulin Lispro [Humalog] 8 unit SQ DAILY@1700 09/13/18 [Last Taken Unknown] Mirabegron [Myrbetriq] 50 mg PO DAILY 09/13/18 [Last Taken Unknown] Verapamil ER [Calan SR/ER 120MG (*)] 120 mg PO DAILY@1700 09/13/18 [Last Taken Unknown] Past Medical History: - Social History Smoking Status: Never smoked Physical Exam Physical Exam: Temp Pulse Resp BP Pulse Ox 36.5 C 73 16 125/61 H 92 09/14/18 12:00 09/14/18 12:00 09/14/18 12:00 09/14/18 12:00 09/14/18 12:00 O2 (L/minute) 2 Constitutional: no apparent distress Eyes: PERRL Ears, Nose, Mouth, Throat: moist mucous membranes Cardiovascular: regular rate and rhythym, systolic murmur, pulses symmetric bilaterally, No JVD Peripheral Pulses: 1+: carotid (R), carotid (L), femoral (R), femoral (L) Respiratory: no respiratory distress, No expiratory wheeze Gastrointestinal: normoactive bowel sounds, soft, non-tender abdomen Genitourinary: no bladder fullness Skin: warm, No rash Musculoskeletal: full muscle strength Neurologic: AAOx3, No weakness, No facial droop Psychiatric: interacting appropriately Lymph, Heme, Immunologic: no cervical LAD, no supraclavicular LAD Lab and Imaging 09/14/18 04:08 09/14/18 04:08 WBC 6.11 10^3/uL (3.80-9.50) 09/14/18 04:08 RBC 3.46 10^6/uL (4.18-5.33) L 09/14/18 04:08 Hgb 11.3 g/dL (12.6-16.3) L 09/14/18 04:08 Hct 33.2 % (38.0-47.0) L 09/14/18 04:08 MCV 96.0 fL (81.5-99.8) 09/14/18 04:08 MCH 32.7 pg (27.9-34.1) 09/14/18 04:08 MCHC 34.0 g/dL (32.4-36.7) 09/14/18 04:08 RDW 13.0 % (11.5-15.2) 09/14/18 04:08 Plt Count 191 10^3/uL (150-400) 09/14/18 04:08 MPV 9.2 fL (8.7-11.7) 09/14/18 04:08 Neut % (Auto) 55.4 % (39.3-74.2) 09/14/18 04:08 Lymph % (Auto) 30.9 % (15.0-45.0) 09/14/18 04:08 [place] % (Auto) 9.5 % (4.5-13.0) 09/14/18 04:08 Eos % (Auto) 3.3 % (0.6-7.6) 09/14/18 04:08 Baso % (Auto) 0.7 % (0.3-1.7) 09/14/18 04:08 Nucleat RBC Rel Count 0.0 % (0.0-0.2) 09/14/18 04:08 Absolute Neuts (auto) 3.39 10^3/uL (1.70-6.50) 09/14/18 04:08 Absolute Lymphs (auto) 1.89 10^3/uL (1.00-3.00) 09/14/18 04:08 Absolute Monos (auto) 0.58 10^3/uL (0.30-0.80) 09/14/18 04:08 Absolute Eos (auto) 0.20 10^3/uL (0.03-0.40) 09/14/18 04:08 Absolute Basos (auto) 0.04 10^3/uL (0.02-0.10) 09/14/18 04:08 Absolute Nucleated RBC 0.00 10^3/uL (0-0.01) 09/14/18 04:08 Immature Gran % 0.2 % (0.0-1.1) 09/14/18 04:08 Immature Gran # 0.01 10^3/uL (0.00-0.10) 09/14/18 04:08 Sodium 141 mEq/L (135-145) 09/14/18 04:08 Potassium 4.3 mEq/L (3.5-5.2) 09/14/18 04:08 Chloride 110 mEq/L (97-110) 09/14/18 04:08 Carbon Dioxide 24 mEq/l (22-31) 09/14/18 04:08 Anion Gap 7 mEq/L (6-14) 09/14/18 04:08 BUN 16 mg/dL (7-23) 09/14/18 04:08 Creatinine 0.5 mg/dL (0.6-1.0) L 09/14/18 04:08 Estimated GFR > 60 09/14/18 04:08 Glucose 149 mg/dL (70-100) H 09/14/18 04:08 POC Glucose 174 mg/dL (70-100) H 09/14/18 13:25 Calcium 9.2 mg/dL (8.5-10.4) 09/14/18 04:08 Phosphorus 4.5 mg/dL (2.5-4.5) 09/14/18 04:08 Magnesium 1.4 mg/dL (1.6-2.3) L 09/14/18 04:08 POC Troponin I 0.02 ng/mL (0.00-0.08) 09/13/18 20:57 Troponin I 0.029 ng/mL (0.000-0.034) 09/14/18 04:08 EKG additional interpertation: Sinus rhythm with right bundle branch block. No acute ST-T changes with ongoing discomfort. A/P Assessment: Problem list: 1. Palpitations 2. Exertional shortness of breath 3. Moderate to severe aortic stenosis 4. Anemia. 5. History of wide complex tachycardia/atrial fibrillation 6. Hypertension 7. Hyperlipidemia 8. Diabetes Recommendations are for discharge from the hospital with clinical follow-up. She is currently on good medical therapy including daily aspirin. It is unlikely that she has had significant progression of underlying coronary disease with a normal angiogram in 2014 an excellent management of risk. I have discussed with her in the past consideration for aortic valve surgery which she has not been interested in. I have discussed with her placement of an ICD for wide complex tachycardia which she also has declined. She is on low- dose beta-blockade. She is on low-dose verapamil for rate control. Blood pressures been well controlled. We will see how she does over the next week to 10 days with consideration for repeat invasive evaluation and considerations for transcutaneous aortic valve replacement if she would like. At this point differential diagnosis would include GI etiology as it related to meals. With negative troponins, stable EKG, past clinical history I feel comfortable with her being discharged in follow-up as an outpatient. She does seem to have a low -grade anemia which is likely contributing. Would recommend completion of evaluation for blood loss. Past Medical History PMH: - Personal History Current Tetanus/Diphtheria Vaccine: Yes Current Tetanus Diphtheria and Acellular Pertussis (TDAP): Yes - Medical/Surgical History Hx Asthma: No Hx Chronic Respiratory Disease: No Hx Cardiac Disease: Yes Hx Diabetes: Yes Hx Renal Disease: No Hx Alcoholism: No Hx Cirrhosis: No Hx HIV/AIDS: No Hx Splenectomy or Spleen Trauma: No Other PMH: Mastectomy R; hysterectomy; cholecystectomy; back surg; shoulder surg. hypothyroid, psoriasis, mitral murmur. ventriculat tachycardia, Afib - Family History Significant Family History: No pertinent family hx - Social History Smoking Status: Never smoked Alcohol Use: None Drug Use: None Additional Social History: Review of Systems Review of Systems: - Review of Systems Constitutional: denies: chills, fever Respiratory: shortness of breath. denies: wheezing Cardiac: chest pain, palpitations. denies: edema, irregular heart rate, lightheadedness, syncope Gastrointestinal/Abdominal: no symptoms reported Genitourinary: no symptoms Musculoskelatal: no symptoms Skin: no symptoms Neurological: no symptoms Hematologic/Lymphatic: no symptoms reported
--- NOTE | 2018-09-14 14:00 | GDS ---
DISCHARGE DIAGNOSES: 1. Chest pain. 2. Aortic stenosis, atrial fibrillation, diabetes, hypertension, presents with episode of chest pain . She had a nonischemic EKG. She had negative troponin. She was seen by her military administrative technician, who felt she was safe for discharge. Notably, she had a catheterization with no coronary disease 4-1/2 years ago. Her EKG was similar to that of about a year and a half ago. She did have some resting nuclear images today showing a small inferolateral apical defect, possible infarct or ischemia. This is indeterminate. Cardiology is aware of this and felt was not a contrain dication to discharge. The patient is anxious for discharge. She does take an aspirin at home. /[id number]/MODL
--- NOTE | 2018-09-14 14:18 | ASDISCHSUM ---
Discharge Information Plan Status:Home with No Needs Medically Cleared to Leave:09/13/2018 Discharge Date:09/13/2018 CM D/C Disposition:Home, Routine, Self-Care ADT D/C Disposition: Projected Discharge Date:09/14/2018 12:00 AM Transportation at D/C:Family Discharge Delay Reason: Follow-Up Date:09/14/2018 12:00 AM Discharge Slot: Final Diagnosis: Placement Information Patient Contact Information Contact Name:SAIRA Relationship:Agapito Address:[address] [facility] Work Phone: City:[facility] Phone: State/Zip Code:[place] [address] Email: Financial Information Financial Class:Medicare Primary Plan Desc:MEDICARE OUTPATIENT Primary Plan Number:[id number] Secondary Plan Desc:KYLIE CHAMORRO O Secondary Plan Number:[id number] Assessment Information BC CM Progress Note CM Note CM Note Notes: Pt is an 83 yo F presents with chestpain. Pt lives with her Solo. No therapies ordered. Likely will discharge independent. CM available if needs arise. Plan: Independent Date Signed: 09/14/2018 09:55 AM Electronically Signed By:RASTA Butt Case Management Discharge Plan Note Case Management Discharge Discharge Order Complete? Answers: Yes Patient to Obtain Answers: via Family Medications Transportation Arranged Answers: Family/Friends Family Notified Answers: Yes Discharge Comments Notes: No CM needs identified. Pt being discharged independently with her husbands support and to transport. Date Signed: 09/14/2018 02:17 PM Electronically Signed By:RASTA Butt Intervention Information
[2018-09-14] MEDS ORDERED: VERAPAMIL ER 120 MG TAB PO SCH (17:00)
[2018-09-14] MEDS ORDERED: INSULIN LISPRO 100 UNIT/ML SC SCH (17:00)
[2018-09-14] MEDS ORDERED: FOLIC ACID 1 MG TAB PO SCH (18:00)
== END 2018-09-14 14:29 | disposition home or self-care (01) ==
LOC: F2W 21:41
PROVIDERS: ADMIT Internal Medicine; ATTEND Internal Medicine
DX: R07.9 Chest pain, unspecified (principal); I35.0 Nonrheumatic aortic (valve) stenosis; I48.91 Unspecified atrial fibrillation; I47.2 Ventricular tachycardia; Z79.82 Long term (current) use of aspirin; D64.9 Anemia, unspecified; E11.9 Type 2 diabetes mellitus without complications; Z79.4 Long term (current) use of insulin; I10 Essential (primary) hypertension; E78.5 Hyperlipidemia, unspecified; Z85.3 Personal history of malignant neoplasm of breast; Z90.11 Acquired absence of right breast and nipple
CPT/HCPCS: 78451; 93005; 96372; 99285; A9500; G0378; J1650; 84484-ER; J2785

== ENCOUNTER → 2018-12-06 | Outpatient (CLI) | payer OTHER | LOC: FIMAGING 11:43 | PROVIDERS: ATTEND Internal Medicine | DX: Z12.31 Encounter for screening mammogram for malignant neoplasm of breast (principal); Z85.3 Personal history of malignant neoplasm of breast; Z90.11 Acquired absence of right breast and nipple ==

== ENCOUNTER → 2018-12-22 | Outpatient (CLI) | payer OTHER ==
[~2018-12-22] MED LIST: IOPAMIDOL (ISOVUE-300) 100 ML BTL ONE
== END ==
LOC: FIMAGING 07:58
PROVIDERS: ATTEND Internal Medicine
DX: R10.9 Unspecified abdominal pain (principal); S22.41XD Multiple fractures of ribs, right side, subsequent encounter for fracture with routine healing; Z85.3 Personal history of malignant neoplasm of breast
CPT/HCPCS: 74177; Q9967; 82565-PO

== ENCOUNTER 2019-02-18 07:44 | Day surgery (SDC) | payer OTHER | END 2019-02-18 14:15 | disposition home or self-care (01) | LOC: FCATH 07:44 ==